=== PATIENT | female | born 1965 | race Caucasian/White ===

== ENCOUNTER 2022-09-25 00:56 | Emergency (ER) | payer OTHER ==
[2022-09-25 01:09] VITALS: BMI 24.3
[2022-09-25] MEDS ORDERED: VANCOMYCIN 1,000 MG in DEXTROSE 5%-WATER - 250 ML IVPB ONE (03:30)
[2022-09-25] MEDS ORDERED: PIPERACILLIN/TAZOB 3.375 GM 3.375 GM in DEXTROSE 5%-WATER - 50 ML IVPB ONE (03:30)
[2022-09-25] MEDS ORDERED: CLINDAMYCIN 600MG PREMIX IVPB 600 MG/50 ML BAG IVPB ONE ×2 (03:30→03:56)
[2022-09-25 03:31] LABS: BASO % 0.8 % (0-2.0); EOS % 3.9 % (0-4.5); HEMATOCRIT 39.5 % (32.4-45.2); HEMOGLOBIN 12.9 GM/dL (10.7-15.3); LYMPH % 33.4 % (8-40); MCHC 32.5 g/dl (32.0-36.0); MEAN CELL VOLUME 101.5 fl (80-96); MEAN PLT VOLUME 8.5 fl (7.5-11.1); NEUT % 43.9 % (42.8-82.8); PLATELET COUNT 246 10^3/uL (134-434); RDW 13.8 % (11.6-15.6); WHITE BLOOD COUNT 5.6 K/mm3 (4.0-10.0)
[2022-09-25 03:41] LABS: CALCIUM 8.6 mg/dL (8.5-10.1)
[2022-09-25 03:42] LABS: ALBUMIN 3.9 g/dl (3.4-5.0); BLOOD UREA NITROGEN 8.9 mg/dL (7-18)
[2022-09-25 03:45] LABS: CREATININE 0.6 mg/dL (0.55-1.3)
[2022-09-25 03:47] LABS: BILIRUBIN,TOTAL 0.3 mg/dL (0.2-1); TOT PROT 7.5 g/dl (6.4-8.2)
[2022-09-25] MEDS ORDERED: PIPERACILLIN/TAZOB 3.375 GM 3.375 GM/50 ML BAG IVPB ONE (03:56)
[2022-09-25] MEDS ORDERED: VANCOMYCIN/WATER FOR INJ (PEG) 1,000 MG/200 ML BAG IVPB ONE (03:56)
[2022-09-25 07:43] VITALS: PULSE 85
[2022-09-25 14:39] VITALS: BP 127/70; RESP 16
[2022-09-25 14:40] VITALS: TEMP 97.8
== END 2022-09-25 14:41 | disposition short-term general hospital (02) ==
LOC: JER 00:56
PROC: 3E033GC Introduction of Other Therapeutic Substance into Peripheral Vein, Percutaneous Approach (ICD-10-PCS; principal; 2022-09-25)
DX: L02.01 Cutaneous abscess of face (principal)
CPT/HCPCS: 0241U-QW; 36415; 70486-TC; 80053; 85025; 99285-25